=== PATIENT | male | born 1935 | race Caucasian/White ===

== ENCOUNTER → 2017-03-19 | Outpatient (CLI) | payer MEDICARE, OTHER ==
[~2017-03-19] MED LIST: /ADVA50050; /TAMS4CA; /TIOT18INH; ACET65TA; EYE; HYDR25TA6; LIDODERM PATCH; LIPI20TA; MILKSUS; PAXI10TA; PERC5TAB8; PROS5TAB; XANA0.25; XANA0.5T; [UNRECOGNIZED DRUG - OTHER]
--- NOTE | 2017-03-19 16:01 | REP ---
Left knee series: Five views. History: Pain. Findings: Five views of the left knee demonstrate vascular calcification fairly extensively. There is early medial compartment osteoarthritic spurring. There is nonarticular spurring at the superior pole of the patella at the quadriceps tendon insertion. Bones, joints and soft tissues are otherwise unremarkable. Impression: No traumatic abnormality. Nonarticular spurring at the upper pole the patella. Early medial compartment osteoarthritic spurring. Signed by Warner Cohn MD 03/19/2017 05:18 P
== END ==
LOC: M WUC 14:40
PROVIDERS: ATTEND Nurse Practitioner Family
DX: M25.562 Pain in left knee (principal); M25.762 Osteophyte, left knee

== ENCOUNTER 2018-01-24 18:49 | Inpatient (IN) | payer MEDICARE, OTHER ==
[2018-01-24] MEDS: ASPIRIN 81 MG CHEW TABLET PO (21:15)
[2018-01-24 22:13] LABS: BASO % 0.5 % (0.0-1.0); EOS # 0.2 10^3/uL (0.0-0.50); EOS % 2.5 % (0.0-3.0); HEMATOCRIT 37.8 % (42.0-52.0); HEMOGLOBIN 12.2 g/dl (13.5-17.5); IMMATURE GRANULOCYTE % 0.3 % (0-3.0); LYMPH # 1.2 10^3/uL (1.5-4.5); LYMPH % 18.7 % (24.0-44.0); MEAN CORPUSCULAR HEMOGLOBIN 28.2 pg (27.0-33.0); MEAN CORPUSCULAR HGB CONC 32.3 g/dl (32.0-36.5); MEAN CORPUSCULAR VOLUME 87.3 fl (80.0-96.0); MONO # 0.7 10^3/uL (0.0-0.8); NEUTROPHILS # 4.4 10^3/uL (1.8-7.7); PLATELET COUNT, AUTOMATED 194 10^3/uL (150-450); RED BLOOD COUNT 4.33 10^6/uL (4.30-6.10); WHITE BLOOD COUNT 6.5 10^3/uL (4.0-10.0)
[2018-01-24 22:22] LABS: BEDSIDE GLUCOSE 97 MG/DL (83-110)
[2018-01-24 22:24] LABS: PROTHROMBIN TIME 15.4 SECONDS (12.1-14.4)
[2018-01-24 22:25] LABS: PARTIAL THROMBOPLASTIN TIME 37.2 SECONDS (25.4-37.6)
[2018-01-24 22:31] LABS: ANION GAP 4 MEQ/L (8-16); BLOOD UREA NITROGEN 25 MG/DL (7-18); C REACTIVE PROTEIN QUANTITATIV 0.33 MG/DL (0.00-0.30); CALCIUM LEVEL 8.8 MG/DL (8.8-10.2); CARBON DIOXIDE LEVEL 33 MEQ/L (21-32); CHLORIDE LEVEL 108 MEQ/L (98-107); CK-MB VALUE MASS 1.7 NG/ML (<3.6); CPK CREATINE PHOSPHOKINASE 197 U/L (39-308); CREATININE FOR GFR 1.15 MG/DL (0.70-1.30); GLOMERULAR FILTRATION RATE > 60.0 (>35); GLUCOSE, FASTING 98 MG/DL (70-100); MB/CK RELATIVE INDEX 0.86 (< OR =4); POTASSIUM SERUM 3.9 MEQ/L (3.5-5.1); SODIUM LEVEL 145 MEQ/L (136-145); TROPONIN I < 0.02 NG/ML (< 0.10)
[2018-01-24 23:08] LABS: ERYTHROCYTE SEDIMENTATION RATE 16 mm/hr (0-20)
[2018-01-24] MEDS ORDERED: ONDANSETRON 4 MG TAB (S0181) PO (23:45)
[2018-01-24] MEDS ORDERED: ACETAMINOPHEN TAB 650MG DOSE (2X325MG) PO (23:45)
[2018-01-25] MEDS: ASPIRIN 81 MG CHEW TABLET PO (00:15)
[2018-01-25 07:03] LABS: HEMATOCRIT 36.6 % (42.0-52.0); HEMOGLOBIN 11.8 g/dl (13.5-17.5); MEAN CORPUSCULAR HEMOGLOBIN 28.3 pg (27.0-33.0); MEAN CORPUSCULAR HGB CONC 32.2 g/dl (32.0-36.5); MEAN CORPUSCULAR VOLUME 87.8 fl (80.0-96.0); PLATELET COUNT, AUTOMATED 173 10^3/uL (150-450); RED BLOOD COUNT 4.17 10^6/uL (4.30-6.10); WHITE BLOOD COUNT 4.8 10^3/uL (4.0-10.0)
[2018-01-25 07:28] LABS: ANION GAP 6 MEQ/L (8-16); BLOOD UREA NITROGEN 21 MG/DL (7-18); CALCIUM LEVEL 8.6 MG/DL (8.8-10.2); CARBON DIOXIDE LEVEL 31 MEQ/L (21-32); CHLORIDE LEVEL 108 MEQ/L (98-107); CHOLESTEROL LEVEL 146 MG/DL (<200); CHOLESTEROL RISK RATIO 2.862 (<5); CREATININE FOR GFR 1.02 MG/DL (0.70-1.30); GLOMERULAR FILTRATION RATE > 60.0 (>35); GLUCOSE, FASTING 88 MG/DL (70-100); HDL CHOLESTEROL 51 MG/DL (>40); LDL CHOLESTEROL 78.4 MG/DL (<100); NON-HDL-C 95 MG/DL; POTASSIUM SERUM 3.3 MEQ/L (3.5-5.1); SODIUM LEVEL 145 MEQ/L (136-145); TRIGLYCERIDES LEVEL 83 MG/DL (<150)
[2018-01-25] MEDS ORDERED: ALBUTEROL 90 MCG/ACT 8GM HFA INHALER INH (08:30)
[2018-01-25] MEDS ORDERED: PILL CRUSHER/CUTTER 1 EACH XX (08:30)
[2018-01-25] MEDS: POTASSIUM CHLORIDE 10 MEQ SR TABLET PO (08:45)
[2018-01-25] MEDS: APIXABAN 5 MG TAB (ELIQUIS) PO ×2 (08:46→20:42)
[2018-01-25] MEDS: TAMSULOSIN 0.4 MG CAP PO (08:47)
[2018-01-25] MEDS: ATORVASTATIN 20 MG TAB PO (08:48)
[2018-01-25] MEDS: ISOSORBIDE MON. (IMDUR) 30 MG XR TAB PO (08:48)
[2018-01-25] MEDS: METOPROLOL TART 25 MG TABLET PO ×2 (08:49→20:43)
[2018-01-25] MEDS: FINASTERIDE 5 MG TAB PO (08:53)
[2018-01-25] MEDS: FAMOTIDINE 20 MG TAB PO (08:53)
[2018-01-25] MEDS: amLODIPine 5 MG TAB PO (09:44)
[2018-01-25] MEDS ORDERED: ISOVUE-370 76% 100ML VIAL (Q9967) As Ordered (17:12)
[2018-01-26 06:53] LABS: HEMATOCRIT 39.9 % (42.0-52.0); HEMOGLOBIN 12.9 g/dl (13.5-17.5); MEAN CORPUSCULAR HEMOGLOBIN 28.2 pg (27.0-33.0); MEAN CORPUSCULAR HGB CONC 32.3 g/dl (32.0-36.5); MEAN CORPUSCULAR VOLUME 87.1 fl (80.0-96.0); PLATELET COUNT, AUTOMATED 200 10^3/uL (150-450); RED BLOOD COUNT 4.58 10^6/uL (4.30-6.10); RED CELL DISTRIBUTION WIDTH 13.2 % (11.5-14.5); WHITE BLOOD COUNT 7.6 10^3/uL (4.0-10.0)
[2018-01-26 07:01] LABS: ANION GAP 4 MEQ/L (8-16); BLOOD UREA NITROGEN 20 MG/DL (7-18); CALCIUM LEVEL 8.8 MG/DL (8.8-10.2); CARBON DIOXIDE LEVEL 31 MEQ/L (21-32); CHLORIDE LEVEL 108 MEQ/L (98-107); CREATININE FOR GFR 1.05 MG/DL (0.70-1.30); GLOMERULAR FILTRATION RATE > 60.0 (>35); GLUCOSE, FASTING 93 MG/DL (70-100); POTASSIUM SERUM 3.7 MEQ/L (3.5-5.1); SODIUM LEVEL 143 MEQ/L (136-145)
[2018-01-26] MEDS: ISOSORBIDE MON. (IMDUR) 30 MG XR TAB PO (09:35)
[2018-01-26] MEDS: TAMSULOSIN 0.4 MG CAP PO (09:35)
[2018-01-26] MEDS: FINASTERIDE 5 MG TAB PO (09:35)
[2018-01-26] MEDS: APIXABAN 5 MG TAB (ELIQUIS) PO (09:35)
[2018-01-26] MEDS: FAMOTIDINE 20 MG TAB PO (09:35)
[2018-01-26] MEDS: METOPROLOL TART 25 MG TABLET PO (09:36)
[2018-01-26] MEDS: amLODIPine 5 MG TAB PO (09:36)
[2018-01-26] MEDS ORDERED: ATORVASTATIN 20 MG TAB PO (21:00)
== END 2018-01-26 14:15 | disposition home or self-care (01) | DRG 123 ==
LOC: M ED 18:49 → M ED INP 23:36
DX: H34.232 Retinal artery branch occlusion, left eye (principal); E78.5 Hyperlipidemia, unspecified; J44.9 Chronic obstructive pulmonary disease, unspecified; K21.9 Gastro-esophageal reflux disease without esophagitis; N40.0 Benign prostatic hyperplasia without lower urinary tract symptoms; I10 Essential (primary) hypertension; Z87.442 Personal history of urinary calculi; Z90.49 Acquired absence of other specified parts of digestive tract; Z98.49 Cataract extraction status, unspecified eye; Z88.0 Allergy status to penicillin; Z88.2 Allergy status to sulfonamides; Z79.01 Long term (current) use of anticoagulants; Z79.899 Other long term (current) drug therapy; Z87.891 Personal history of nicotine dependence; Z85.828 Personal history of other malignant neoplasm of skin; I48.0 Paroxysmal atrial fibrillation; I65.22 Occlusion and stenosis of left carotid artery

== ENCOUNTER 2018-04-19 18:19 | Emergency (ER) | payer MEDICARE, OTHER ==
[2018-04-19 21:13] LABS: BASO % 0.4 % (0.0-1.0); EOS # 0.3 10^3/uL (0.0-0.50); EOS % 3.7 % (0.0-3.0); HEMATOCRIT 40.7 % (42.0-52.0); HEMOGLOBIN 13.3 g/dl (13.5-17.5); IMMATURE GRANULOCYTE % 0.4 % (0-3.0); LYMPH # 1.5 10^3/uL (1.5-4.5); LYMPH % 20.1 % (24.0-44.0); MEAN CORPUSCULAR HEMOGLOBIN 28.7 pg (27.0-33.0); MEAN CORPUSCULAR HGB CONC 32.7 g/dl (32.0-36.5); MEAN CORPUSCULAR VOLUME 87.7 fl (80.0-96.0); MONO # 0.7 10^3/uL (0.0-0.8); MONO % 8.7 % (0.0-5.0); NEUTROPHILS # 5.1 10^3/uL (1.8-7.7); NEUTROPHILS % 66.7 % (36.0-66.0); PLATELET COUNT, AUTOMATED 203 10^3/uL (150-450); RED BLOOD COUNT 4.64 10^6/uL (4.30-6.10); RED CELL DISTRIBUTION WIDTH 13.1 % (11.5-14.5); WHITE BLOOD COUNT 7.6 10^3/uL (4.0-10.0)
[2018-04-19 21:43] LABS: ALBUMIN 3.3 GM/DL (3.2-5.2); ALBUMIN/GLOBULIN RATIO 0.97 (1.00-1.93); ALKALINE PHOSPHATASE 71 U/L (45-117); ALT/SGPT 30 U/L (12-78); ANION GAP 9 MEQ/L (8-16); AST/SGOT 21 U/L (7-37); BILIRUBIN,DIRECT 0.2 MG/DL (0.0-0.2); BILIRUBIN,TOTAL 0.8 MG/DL (0.2-1.0); BLOOD UREA NITROGEN 25 MG/DL (7-18); CALCIUM LEVEL 8.4 MG/DL (8.8-10.2); CARBON DIOXIDE LEVEL 28 MEQ/L (21-32); CHLORIDE LEVEL 106 MEQ/L (98-107); CPK CREATINE PHOSPHOKINASE 121 U/L (39-308); CREATININE FOR GFR 1.21 MG/DL (0.70-1.30); GLOMERULAR FILTRATION RATE > 60.0 (>35); GLUCOSE, FASTING 93 MG/DL (70-100); MAGNESIUM LEVEL 1.9 MG/DL (1.8-2.4); NT-PRO BNP 2131 PG/ML (<450); POTASSIUM SERUM 3.6 MEQ/L (3.5-5.1); SODIUM LEVEL 143 MEQ/L (136-145); TOTAL PROTEIN 6.7 GM/DL (6.4-8.2); TROPONIN I < 0.02 NG/ML (< 0.10)
[2018-04-19] MEDS: METOPROLOL SUCC (TopROL XL) 50MG **XL** TAB PO (22:46)
== END 2018-04-19 23:33 | disposition home or self-care (01) ==
LOC: M ED 18:19
DX: I48.91 Unspecified atrial fibrillation (principal); J44.9 Chronic obstructive pulmonary disease, unspecified; Z87.442 Personal history of urinary calculi; F41.9 Anxiety disorder, unspecified; H34.239 Retinal artery branch occlusion, unspecified eye; Z87.891 Personal history of nicotine dependence; Z88.8 Allergy status to other drugs, medicaments and biological substances; Z88.0 Allergy status to penicillin; Z88.2 Allergy status to sulfonamides
CPT/HCPCS: 71046

== ENCOUNTER 2018-04-21 11:51 | Observation (INO) | payer MEDICARE, OTHER ==
[2018-04-21 13:11] LABS: BASO # 0.1 10^3/uL (0.0-0.2); BASO % 0.7 % (0.0-1.0); EOS # 0.1 10^3/uL (0.0-0.50); EOS % 1.9 % (0.0-3.0); HEMATOCRIT 41.4 % (42.0-52.0); HEMOGLOBIN 13.3 g/dl (13.5-17.5); IMMATURE GRANULOCYTE % 0.4 % (0-3.0); LYMPH # 1.2 10^3/uL (1.5-4.5); LYMPH % 17.9 % (24.0-44.0); MEAN CORPUSCULAR HEMOGLOBIN 28.5 pg (27.0-33.0); MEAN CORPUSCULAR HGB CONC 32.1 g/dl (32.0-36.5); MEAN CORPUSCULAR VOLUME 88.7 fl (80.0-96.0); MONO # 0.5 10^3/uL (0.0-0.8); MONO % 7.7 % (0.0-5.0); NEUTROPHILS # 4.8 10^3/uL (1.8-7.7); NEUTROPHILS % 71.4 % (36.0-66.0); PLATELET COUNT, AUTOMATED 230 10^3/uL (150-450); RED BLOOD COUNT 4.67 10^6/uL (4.30-6.10); RED CELL DISTRIBUTION WIDTH 13.2 % (11.5-14.5); WHITE BLOOD COUNT 6.8 10^3/uL (4.0-10.0)
[2018-04-21 13:14] LABS: PROTHROMBIN TIME 17.4 SECONDS (12.1-14.4)
[2018-04-21 13:15] LABS: PARTIAL THROMBOPLASTIN TIME 37.2 SECONDS (25.4-37.6)
[2018-04-21 13:20] LABS: ALBUMIN 3.6 GM/DL (3.2-5.2); ALBUMIN/GLOBULIN RATIO 1.13 (1.00-1.93); ALKALINE PHOSPHATASE 67 U/L (45-117); ALT/SGPT 29 U/L (12-78); ANION GAP 5 MEQ/L (8-16); AST/SGOT 18 U/L (7-37); BILIRUBIN,DIRECT 0.3 MG/DL (0.0-0.2); BILIRUBIN,TOTAL 1.1 MG/DL (0.2-1.0); BLOOD UREA NITROGEN 31 MG/DL (7-18); CALCIUM LEVEL 9.1 MG/DL (8.8-10.2); CARBON DIOXIDE LEVEL 32 MEQ/L (21-32); CHLORIDE LEVEL 108 MEQ/L (98-107); CREATININE FOR GFR 1.52 MG/DL (0.70-1.30); GLOMERULAR FILTRATION RATE 46.7 (>35); GLUCOSE, FASTING 126 MG/DL (70-100); POTASSIUM SERUM 3.8 MEQ/L (3.5-5.1); SODIUM LEVEL 145 MEQ/L (136-145); TOTAL PROTEIN 6.8 GM/DL (6.4-8.2)
[2018-04-21 13:21] LABS: C REACTIVE PROTEIN QUANTITATIV < 0.30 MG/DL (0.00-0.30); CPK CREATINE PHOSPHOKINASE 86 U/L (39-308); MB/CK RELATIVE INDEX 1.63 (< OR =4); NT-PRO BNP 2064 PG/ML (<450); TROPONIN I < 0.02 NG/ML (< 0.10)
[2018-04-21 17:05] LABS: CPK CREATINE PHOSPHOKINASE 80 U/L (39-308); MB/CK RELATIVE INDEX 1.62 (< OR =4); TROPONIN I < 0.02 NG/ML (< 0.10)
[2018-04-21] MEDS ORDERED: ALBUTEROL 90 MCG/ACT 8GM HFA INHALER INH ×2 (19:00)
[2018-04-21] MEDS ORDERED: ACETAMINOPHEN TAB 650MG DOSE (2X325MG) PO ×2 (19:00)
[2018-04-21 20:16] LABS: TROPONIN I < 0.02 NG/ML (< 0.10)
[2018-04-21] MEDS: APIXABAN 2.5 MG TAB (ELIQUIS) PO ×2 (20:37)
[2018-04-21] MEDS: ATORVASTATIN 20 MG TAB PO ×2 (20:37)
[2018-04-21] MEDS: FAMOTIDINE 20 MG TAB PO ×2 (20:37)
[2018-04-21] MEDS: METOPROLOL TARTRATE 100 MG TAB PO ×2 (20:37)
[2018-04-21] MEDS: NS 1,000 ML IV ×2 (20:38)
[2018-04-21] MEDS: TAMSULOSIN 0.4 MG CAP PO ×2 (20:38)
[2018-04-21] MEDS ORDERED: APIXABAN 5 MG TAB (ELIQUIS) PO ×2 (21:00)
[2018-04-21] MEDS: amLODIPine 5 MG TAB PO ×2 (21:00)
[2018-04-22 03:06] LABS: TROPONIN I < 0.02 NG/ML (< 0.10)
[2018-04-22 06:37] LABS: HEMATOCRIT 37.6 % (42.0-52.0); HEMOGLOBIN 12.1 g/dl (13.5-17.5); MEAN CORPUSCULAR HEMOGLOBIN 28.5 pg (27.0-33.0); MEAN CORPUSCULAR HGB CONC 32.2 g/dl (32.0-36.5); MEAN CORPUSCULAR VOLUME 88.7 fl (80.0-96.0); PLATELET COUNT, AUTOMATED 179 10^3/uL (150-450); RED BLOOD COUNT 4.24 10^6/uL (4.30-6.10); RED CELL DISTRIBUTION WIDTH 13.2 % (11.5-14.5); WHITE BLOOD COUNT 5.5 10^3/uL (4.0-10.0)
[2018-04-22 06:59] LABS: ANION GAP 4 MEQ/L (8-16); BLOOD UREA NITROGEN 29 MG/DL (7-18); CALCIUM LEVEL 8.5 MG/DL (8.8-10.2); CARBON DIOXIDE LEVEL 30 MEQ/L (21-32); CHLORIDE LEVEL 109 MEQ/L (98-107); CREATININE FOR GFR 1.19 MG/DL (0.70-1.30); GLOMERULAR FILTRATION RATE > 60.0 (>35); GLUCOSE, FASTING 89 MG/DL (70-100); POTASSIUM SERUM 3.7 MEQ/L (3.5-5.1); SODIUM LEVEL 143 MEQ/L (136-145)
[2018-04-22] MEDS: NS 1,000 ML IV ×2 (07:45)
[2018-04-22] MEDS ORDERED: PREVNAR 13 VACCINE SYRINGE (CPT CODE:90670) IM ×4 (09:00→14:00)
[2018-04-22] MEDS: METOPROLOL TARTRATE 100 MG TAB PO ×2 (09:35)
[2018-04-22] MEDS: ISOSORBIDE MON. (IMDUR) 30 MG XR TAB PO ×2 (09:38)
[2018-04-22] MEDS: APIXABAN 2.5 MG TAB (ELIQUIS) PO ×2 (09:38)
[2018-04-22 15:27] LABS: TROPONIN I < 0.02 NG/ML (< 0.10)
== END 2018-04-22 15:00 | disposition home or self-care (01) ==
LOC: M MSPAV 04-22 00:04 → M ED 11:51 → M ED INP 19:14
DX: I48.0 Paroxysmal atrial fibrillation (principal); R06.09 Other forms of dyspnea; R79.89 Other specified abnormal findings of blood chemistry; J44.9 Chronic obstructive pulmonary disease, unspecified; K21.9 Gastro-esophageal reflux disease without esophagitis; I10 Essential (primary) hypertension; F41.9 Anxiety disorder, unspecified; Z79.899 Other long term (current) drug therapy; Z79.01 Long term (current) use of anticoagulants; Z79.51 Long term (current) use of inhaled steroids
CPT/HCPCS: 71045

== ENCOUNTER → 2020-03-14 | Outpatient (CLI) | payer MEDICARE, OTHER ==
[~2020-03-14] MED LIST changes: -/ADVA50050; -/TAMS4CA; -/TIOT18INH; +ADVA1AER2; +AMLO1TAB24 PO; +ATOR1TAB21 PO; +ATOR40TA75 PO; +ELIQ5TAB PO; +FINA5TAB2 PO; +FLOM0.4C39 PO; -HYDR25TA6; +HYDR25TA6 PO; +HYDR25TAB PO; +ISOS30TA4 PO; -LIPI20TA; +LIPI20TA PO; +LOPR1TAB7 PO; +METO50TA7 PO; +RANI1SYP PO; +RANI75TA15 PO; +SPIR1CAP; +TREL1AER INH; +VENTAER INH
--- NOTE | 2020-03-31 14:23 | REP ---
LEFT HAND SERIES: 4-VIEWS HISTORY: Unspecified contusion. Patient injured in a fall. FINDINGS: Four views of the left hand demonstrate overall normal mineralization. 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 Osteoarthritic changes are seen in the distal interphalangeal (DIP) joints of all four fingers. There is no visible fracture or subluxation. There is soft tissue swelling dorsally over the distal metacarpals on the lateral film. IMPRESSION: Soft tissue swelling and osteoarthritic changes. No acute bony abnormality. MTDD
== END ==
LOC: M WUC 13:09
PROVIDERS: ATTEND Physician Assistant
DX: S61.402A Unspecified open wound of left hand, initial encounter (principal); S60.222A Contusion of left hand, initial encounter; X58.XXXA Exposure to other specified factors, initial encounter; Y92.9 Unspecified place or not applicable; M18.12 Unilateral primary osteoarthritis of first carpometacarpal joint, left hand

== ENCOUNTER → 2021-11-22 | Outpatient (CLI) | payer MEDICARE, OTHER ==
[~2021-11-22] MED LIST changes: +HYDR-3490 PO; -HYDR25TAB PO; +ISOS1TAB35 PO; -ISOS30TA4 PO; +ISOVUE-370 76% 100ML VIAL As Ordered ONE
== END ==
LOC: M RAD 13:50
PROVIDERS: ATTEND Surgery Vascular Surgery
DX: I70.213 Atherosclerosis of native arteries of extremities with intermittent claudication, bilateral legs (principal); I70.0 Atherosclerosis of aorta; N28.1 Cyst of kidney, acquired; K57.30 Diverticulosis of large intestine without perforation or abscess without bleeding; N20.0 Calculus of kidney
CPT/HCPCS: 75635; Q9967

== ENCOUNTER → 2022-01-30 | Outpatient (CLI) | payer MEDICARE, OTHER ==
[~2022-01-30] MED LIST changes: -ISOVUE-370 76% 100ML VIAL As Ordered ONE
== END ==
LOC: M WUC 14:46
PROVIDERS: ATTEND Internal Medicine
DX: R14.0 Abdominal distension (gaseous) (principal); N20.0 Calculus of kidney

== ENCOUNTER → 2022-03-28 | Outpatient (CLI) | payer MEDICARE, OTHER ==
[~2022-03-28] MED LIST changes: +PROHANCE 279.3MG/ML 15ML VIAL ONE
== END ==
LOC: M PLAIMG 12:19
PROVIDERS: ATTEND Physician Assistant Medical
DX: R93.0 Abnormal findings on diagnostic imaging of skull and head, not elsewhere classified (principal); I67.82 Cerebral ischemia; R42 Dizziness and giddiness; H53.9 Unspecified visual disturbance
CPT/HCPCS: 70544; 70553; A9576

== ENCOUNTER → 2022-04-05 | Outpatient (CLI) | payer MEDICARE, OTHER ==
[~2022-04-05] MED LIST changes: -PROHANCE 279.3MG/ML 15ML VIAL ONE
== END ==
LOC: M WUC 10:50
PROVIDERS: ATTEND Physician Assistant Medical
DX: J06.9 Acute upper respiratory infection, unspecified (principal)

== ENCOUNTER → 2022-05-08 | Outpatient (CLI) | payer MEDICARE, OTHER | LOC: M RAD 13:40 | PROVIDERS: ATTEND Physician Assistant | DX: I65.23 Occlusion and stenosis of bilateral carotid arteries (principal) ==

== ENCOUNTER → 2022-06-28 | Outpatient (CLI) | payer MEDICARE, OTHER ==
[~2022-06-28] MED LIST changes: +HYDR-3490; +PRED50TA PO
== END ==
LOC: M ONCR 09:26
PROVIDERS: ATTEND General Practice
DX: C41.0 Malignant neoplasm of bones of skull and face (principal); E78.5 Hyperlipidemia, unspecified; H92.09 Otalgia, unspecified ear; I12.9 Hypertensive chronic kidney disease with stage 1 through stage 4 chronic kidney disease, or unspecified chronic kidney disease; I48.91 Unspecified atrial fibrillation; J32.9 Chronic sinusitis, unspecified; J44.9 Chronic obstructive pulmonary disease, unspecified; R68.84 Jaw pain; R51.9 Headache, unspecified; R53.83 Other fatigue; Z90.49 Acquired absence of other specified parts of digestive tract; Z88.0 Allergy status to penicillin; Z88.5 Allergy status to narcotic agent; Z88.2 Allergy status to sulfonamides; Z88.1 Allergy status to other antibiotic agents; Z79.899 Other long term (current) drug therapy; Z79.52 Long term (current) use of systemic steroids; Z79.51 Long term (current) use of inhaled steroids

== ENCOUNTER → 2022-07-09 | Outpatient (CLI) | payer MEDICARE, OTHER ==
[~2022-07-09] MED LIST changes: +ISOVUE-370 76% 100ML VIAL As Ordered ONE
[2022-07-09 17:57] LABS: ALKALINE PHOSPHATASE 81 U/L (46-116); ALT/SGPT 24 U/L (7.0-40); AST/SGOT 22 U/L (<34); BILIRUBIN,TOTAL 0.8 MG/DL (0.3-1.2); BLOOD UREA NITROGEN 23 MG/DL (9-23); CALCIUM LEVEL 8.8 MG/DL (8.3-10.6); CARBON DIOXIDE LEVEL 32 MMOL/L (20-31); CHLORIDE LEVEL 106 MMOL/L (98-107); CREATININE FOR GFR 1.05 MG/DL (0.70-1.30); GLOMERULAR FILTRATION RATE > 60.0 (>35); GLUCOSE, FASTING 87 MG/DL (74-106); POTASSIUM SERUM 3.8 MMOL/L (3.5-5.1); SODIUM LEVEL 144 MMOL/L (136-145); TOTAL PROTEIN 6.2 G/DL (5.7-8.2)
[2022-07-09 18:00] LABS: BASO % 0.3 % (0.0-1.0); EOS # 0.2 10^3/uL (0.0-0.5); EOS % 2.2 % (0.0-3.0); HEMOGLOBIN 11.6 g/dl (13.5-17.5); LYMPH # 1.1 10^3/uL (1.5-5.0); LYMPH % 16.5 % (24.0-44.0); MEAN CORPUSCULAR HEMOGLOBIN 28.2 pg (27.0-33.0); MEAN CORPUSCULAR HGB CONC 31.4 g/dl (32.0-36.5); MONO # 0.9 10^3/uL (0.0-0.8); NEUTROPHILS # 4.7 10^3/uL (1.5-8.5); NEUTROPHILS % 67.4 % (36.0-66.0); PLATELET COUNT, AUTOMATED 185 10^3/uL (150-450); RED BLOOD COUNT 4.11 10^6/uL (4.30-6.10); WHITE BLOOD COUNT 6.9 10^3/uL (4.0-10.0)
== END ==
LOC: M RAD 16:42
PROVIDERS: ATTEND General Practice
DX: C41.0 Malignant neoplasm of bones of skull and face (principal); R91.8 Other nonspecific abnormal finding of lung field; I25.10 Atherosclerotic heart disease of native coronary artery without angina pectoris; Z90.49 Acquired absence of other specified parts of digestive tract; N28.1 Cyst of kidney, acquired; E27.9 Disorder of adrenal gland, unspecified; Z87.81 Personal history of (healed) traumatic fracture; M47.9 Spondylosis, unspecified; H74.8X2 Other specified disorders of left middle ear and mastoid
CPT/HCPCS: 36415; 70487; 70491; 71260; 80053; 85025; Q9967

== ENCOUNTER → 2022-07-31 | Outpatient (RCR) | payer MEDICARE, OTHER ==
[~2022-07-31] MED LIST changes: +DEXA2TA PO; +DEXA4TA PO; +FLUTISP; -HYDR-3490; -ISOVUE-370 76% 100ML VIAL As Ordered ONE; +LIDO15SO4 PO; +OXYC1SOL3 PO; +POTA10CA33; +magic mouthwash SSP
== END ==
LOC: M ONCR 07-11 10:08
PROVIDERS: ATTEND General Practice
DX: C11.2 Malignant neoplasm of lateral wall of nasopharynx (principal)

== ENCOUNTER → 2022-08-12 | Outpatient (CLI) | payer MEDICARE, OTHER | LOC: M LABSMTC 09:55 | PROVIDERS: ATTEND Anesthesiology | DX: Z01.812 Encounter for preprocedural laboratory examination (principal); Z11.52 Encounter for screening for COVID-19 ==

== ENCOUNTER → 2022-08-13 | Outpatient (CLI) | payer MEDICARE, OTHER ==
[~2022-08-13] MED LIST changes: +TRAM50TA2 PO
== END ==
LOC: M ONCR 15:07
PROVIDERS: ATTEND General Practice
DX: R07.0 Pain in throat (principal); Z92.3 Personal history of irradiation

== ENCOUNTER → 2022-08-17 | Outpatient (CLI) | payer MEDICARE, OTHER | LOC: M ONCR 15:55 | PROVIDERS: ATTEND General Practice | DX: K12.30 Oral mucositis (ulcerative), unspecified (principal) ==

== ENCOUNTER → 2022-08-24 | Outpatient (CLI) | payer MEDICARE, OTHER | LOC: M ONCR 10:46 | PROVIDERS: ATTEND General Practice | DX: Z01.89 Encounter for other specified special examinations (principal) ==

== ENCOUNTER → 2022-11-07 | Outpatient (CLI) | payer MEDICARE, OTHER ==
[~2022-11-07] MED LIST changes: +FLUT50SP17; -FLUTISP; +LIDO15SO PO; -LIDO15SO4 PO
[2022-11-07 18:52] LABS: ALBUMIN 3.3 G/DL (3.2-5.2); ALKALINE PHOSPHATASE 77 U/L (46-116); ALT/SGPT 25 U/L (7.0-40); AST/SGOT 22 U/L (<34); BILIRUBIN,TOTAL 0.8 MG/DL (0.3-1.2); BLOOD UREA NITROGEN 25 MG/DL (9-23); CALCIUM LEVEL 9.1 MG/DL (8.3-10.6); CARBON DIOXIDE LEVEL 32 MMOL/L (20-31); CHLORIDE LEVEL 108 MMOL/L (98-107); CREATININE FOR GFR 1.09 MG/DL (0.70-1.30); GLOMERULAR FILTRATION RATE > 60.0 (>35); GLUCOSE, FASTING 58 MG/DL (74-106); POTASSIUM SERUM 3.6 MMOL/L (3.5-5.1); SODIUM LEVEL 141 MMOL/L (136-145); TOTAL PROTEIN 6.5 G/DL (5.7-8.2)
== END ==
LOC: M LAB 17:12
PROVIDERS: ATTEND General Practice
DX: C41.0 Malignant neoplasm of bones of skull and face (principal)

== ENCOUNTER → 2022-11-12 | Outpatient (CLI) | payer MEDICARE, OTHER ==
[~2022-11-12] MED LIST changes: +ACET-907 PO; +FAMO1TAB11 PO; +ISOVUE-370 76% 100ML VIAL As Ordered ONE; +METO1TAB33 PO; -POTA10CA33; +POTA10CA33 PO
== END ==
LOC: M RAD 09:49
PROVIDERS: ATTEND General Practice
DX: C41.0 Malignant neoplasm of bones of skull and face (principal); M27.2 Inflammatory conditions of jaws; M62.89 Other specified disorders of muscle
CPT/HCPCS: 70487; 70491; Q9967

== ENCOUNTER 2022-11-16 08:19 | Inpatient (IN) | payer MEDICARE, OTHER ==
[~2022-11-16] VITALS: Ht 170.2 cm; Wt 80.1 kg
[2022-11-16] MEDS: TIOTROPIUM INHALER/CAPSULE (SPIRIVA) INH SCH (08:00)
[2022-11-16] MEDS: ADVAIR HFA 115/21MCG INHALER INH SCH ×2 (08:00→20:23)
[~2022-11-16 08:19] MED LIST changes: -ACET-907 PO; -FAMO1TAB11 PO; -ISOVUE-370 76% 100ML VIAL As Ordered ONE; -METO1TAB33 PO
[2022-11-16 09:33] LABS: BASO % 0.1 % (0.0-1.0); HEMATOCRIT 37.6 % (42.0-52.0); HEMOGLOBIN 12.5 g/dl (13.5-17.5); LYMPH # 0.7 10^3/uL (1.5-5.0); LYMPH % 4.4 % (24.0-44.0); MEAN CORPUSCULAR HEMOGLOBIN 28.9 pg (27.0-33.0); MEAN CORPUSCULAR HGB CONC 33.2 g/dl (32.0-36.5); MONO # 0.9 10^3/uL (0.0-0.8); MONO % 5.8 % (2.0-8.0); NEUTROPHILS # 13.8 10^3/uL (1.5-8.5); NEUTROPHILS % 88.9 % (36.0-66.0); PLATELET COUNT, AUTOMATED 207 10^3/uL (150-450); RED BLOOD COUNT 4.32 10^6/uL (4.30-6.10); WHITE BLOOD COUNT 15.6 10^3/uL (4.0-10.0)
[2022-11-16] MEDS ORDERED: ISOVUE-370 76% 100ML VIAL As Ordered ONE (09:39)
[2022-11-16 09:54] LABS: INR 1.17; PROTHROMBIN TIME 15.1 SECONDS (12.5-14.5)
[2022-11-16 09:55] LABS: PARTIAL THROMBOPLASTIN TIME 35.3 SECONDS (24.8-34.2)
[2022-11-16 09:57] LABS: ALBUMIN 3.4 G/DL (3.2-5.2); BILIRUBIN,DIRECT 0.7 MG/DL (<0.4); BILIRUBIN,TOTAL 2.2 MG/DL (0.3-1.2); TOTAL PROTEIN 6.7 G/DL (5.7-8.2)
[2022-11-16] MEDS ORDERED: MOXIFLOXACIN HCL 400 MG in IV 1 EA IV ONE (10:15)
[2022-11-16 10:28] LABS: RSV AMPLIFICATION NEGATIVE (NEGATIVE)
[2022-11-16] MEDS ORDERED: FAMO1TAB11 PO (11:46)
[2022-11-16] MEDS ORDERED: METO1TAB33 PO (11:46)
[2022-11-16] MEDS ORDERED: ACET-907 PO (11:46)
[2022-11-16] MEDS ORDERED: HOME MED LIST COMPLETE! XX SCH (11:50)
[2022-11-16] MEDS ORDERED: NS 1,340 ML in IV 1 EA IV ONE (11:55)
[2022-11-16] MEDS ORDERED: MORPHINE 2 MG/ML 1ML VIAL IV PRN (12:25)
[2022-11-16] MEDS ORDERED: ONDANSETRON 4MG 2ML VIAL IV PRN (12:25)
[2022-11-16 13:26] VITALS: BP 140/75
[2022-11-16] MEDS: metroNIDAZOLE 500 MG in IV 1 EA IV SCH ×2 (13:49→20:58)
[2022-11-16] MEDS: NS 1,000 ML IV SCH (13:50)
[2022-11-16] MEDS: PANTOPRAZOLE 40MG VIAL IV SCH (13:52)
[2022-11-16 14:27] LABS: ALBUMIN 3.2 G/DL (3.2-5.2); ALKALINE PHOSPHATASE 73 U/L (46-116); ALT/SGPT 24 U/L (7.0-40); AST/SGOT 21 U/L (<34); BILIRUBIN,TOTAL 2.2 MG/DL (0.3-1.2); BLOOD UREA NITROGEN 21 MG/DL (9-23); CALCIUM LEVEL 8.7 MG/DL (8.3-10.6); CARBON DIOXIDE LEVEL 27 MMOL/L (20-31); CHLORIDE LEVEL 103 MMOL/L (98-107); CREATININE FOR GFR 0.89 MG/DL (0.70-1.30); GLOMERULAR FILTRATION RATE > 60.0 (>35); GLUCOSE, FASTING 91 MG/DL (74-106); POTASSIUM SERUM 3.7 MMOL/L (3.5-5.1); SODIUM LEVEL 137 MMOL/L (136-145); TOTAL PROTEIN 6.2 G/DL (5.7-8.2)
[2022-11-16 17:59] VITALS: BP 90/62
[2022-11-16] MEDS ORDERED: ALBUTEROL 90 MCG/ACT 8GM HFA INHALER INH PRN (18:15)
[2022-11-16] MEDS ORDERED: NS 500 ML IV ONE (18:40)
[2022-11-16 18:48] VITALS: BP 146/62
[2022-11-16] MEDS: KETOROLAC 30 MG/ML 1ML VIAL IV PRN ×2 (19:34→21:01)
[2022-11-16] MEDS: ATORVASTATIN 20 MG TAB PO SCH (20:56)
[2022-11-16] MEDS: TAMSULOSIN 0.4 MG CAP PO SCH (20:56)
[2022-11-16] MEDS: amLODIPine 5 MG TAB PO SCH (20:58)
[2022-11-16 21:00] VITALS: BP 131/50
[2022-11-17] VITALS (8 sets, daily range): BP systolic 108–140; BP diastolic 49–76
[2022-11-17] MEDS: KETOROLAC 30 MG/ML 1ML VIAL IV PRN ×2 (03:07→18:02)
[2022-11-17] MEDS: metroNIDAZOLE 500 MG in IV 1 EA IV SCH ×3 (04:37→20:44)
[2022-11-17 05:56] LABS: HEMATOCRIT 32.9 % (42.0-52.0); HEMOGLOBIN 10.7 g/dl (13.5-17.5); MEAN CORPUSCULAR HEMOGLOBIN 28.7 pg (27.0-33.0); MEAN CORPUSCULAR HGB CONC 32.5 g/dl (32.0-36.5); MEAN CORPUSCULAR VOLUME 88.2 fl (80.0-96.0); PLATELET COUNT, AUTOMATED 160 10^3/uL (150-450); RED BLOOD COUNT 3.73 10^6/uL (4.30-6.10); WHITE BLOOD COUNT 13.9 10^3/uL (4.0-10.0)
[2022-11-17] MEDS ORDERED: ACETAMINOPHEN 1000MG 100ML IV BAG IV ONE (06:00)
[2022-11-17 06:14] LABS: ALBUMIN 2.5 G/DL (3.2-5.2); ALKALINE PHOSPHATASE 65 U/L (46-116); ALT/SGPT 19 U/L (7.0-40); AST/SGOT 20 U/L (<34); BILIRUBIN,TOTAL 2.1 MG/DL (0.3-1.2); BLOOD UREA NITROGEN 18 MG/DL (9-23); CALCIUM LEVEL 8.1 MG/DL (8.3-10.6); CARBON DIOXIDE LEVEL 25 MMOL/L (20-31); CHLORIDE LEVEL 108 MMOL/L (98-107); CREATININE FOR GFR 1.06 MG/DL (0.70-1.30); GLOMERULAR FILTRATION RATE > 60.0 (>35); GLUCOSE, FASTING 85 MG/DL (74-106); POTASSIUM SERUM 3.3 MMOL/L (3.5-5.1); SODIUM LEVEL 141 MMOL/L (136-145); TOTAL PROTEIN 5.1 G/DL (5.7-8.2)
[2022-11-17] MEDS: NS 1,000 ML IV SCH (06:15)
[2022-11-17] MEDS: TIOTROPIUM INHALER/CAPSULE (SPIRIVA) INH SCH (07:57)
[2022-11-17] MEDS: ADVAIR HFA 115/21MCG INHALER INH SCH ×2 (08:00→19:50)
[2022-11-17] MEDS: KCL 10MEQ/100ML SWI (KRUN) 10 MEQ in IV 1 EA IV SCH ×8 (09:00→19:05)
[2022-11-17] MEDS: PANTOPRAZOLE 40MG VIAL IV SCH (09:30)
[2022-11-17] MEDS: ISOSORBIDE MON. (IMDUR) 30MG XR TAB PO SCH (09:34)
[2022-11-17] MEDS: METOPROLOL SUCC (TopROL XL) 100MG *XL* TAB PO SCH (09:35)
[2022-11-17] MEDS ORDERED: LR 1,000 ML IV SCH ×2 (10:35→15:00)
[2022-11-17] MEDS ORDERED: HYDROMORPHONE HCL 0.5 MG/ 0.5 ML SYRINGE IV PRN ×2 (10:35→15:00)
[2022-11-17] MEDS ORDERED: BUPIVACAINE HCL 0.25% 10ML VIAL As Ordered ONE (11:00)
[2022-11-17] MEDS ORDERED: LIDOCAINE 1% SDV 30ML VIAL As Ordered ONE (11:01)
[2022-11-17] MEDS ORDERED: BUPIVACAINE LIPOSOME/PF 1.3% 20ML VIAL (13.3MG/ML)(EXPAREL) As Ordered ONE (11:01)
[2022-11-17] MEDS ORDERED: BUPIVACAINE HCL 0.25% 30ML VIAL As Ordered ONE (11:01)
[2022-11-17] MEDS ORDERED: CIPROFLOXACIN/D5W 400 MG/200 ML BAG As Ordered ONE (11:10)
[2022-11-17] MEDS: CIPROFLOXACIN 400 MG in IV 1 EA IV SCH ×2 (11:25→22:53)
[2022-11-17] MEDS ORDERED: ROCURONIUM BROMIDE 50MG/5ML VIAL As Ordered ONE ×2 (11:38→11:58)
[2022-11-17] MEDS ORDERED: SUGAMMADEX SODIUM 500 MG/5 ML VIAL (BRIDION) As Ordered ONE (11:38)
[2022-11-17] MEDS ORDERED: fentaNYL 100 MCG/2 ML INJECTION As Ordered ONE (11:38)
[2022-11-17] MEDS ORDERED: LIDOCAINE 2% 100MG/5ML SDV (FOR ANES.) As Ordered ONE (11:38)
[2022-11-17] MEDS ORDERED: ONDANSETRON 4MG 2ML VIAL As Ordered ONE (11:38)
[2022-11-17] MEDS ORDERED: propofoL 200 MG/20 ML VIAL As Ordered ONE (11:38)
[2022-11-17] MEDS ORDERED: ACETAMINOPHEN 1000MG 100ML IV BAG As Ordered ONE (11:41)
[2022-11-17] MEDS ORDERED: HYDROmorphone HCL 2MG/ML 1ML VIAL As Ordered ONE (11:57)
[2022-11-17] MEDS ORDERED: metroNIDAZOLE/NACL 500MG(5MG/ML) 100ML BAG As Ordered ONE (13:19)
[2022-11-17] MEDS ORDERED: GLUCAGON INJ 1MG VIAL As Ordered ONE (14:11)
[2022-11-17] MEDS ORDERED: GLUCAGON INJ 1MG VIAL IV ONE (14:13)
[2022-11-17] MEDS ORDERED: ONDANSETRON 4MG 2ML VIAL IV PRN (15:00)
[2022-11-17] MEDS: MORPHINE 4 MG/ML 1ML VIAL IV PRN (19:44)
[2022-11-17] MEDS: amLODIPine 5 MG TAB PO SCH (20:43)
[2022-11-17] MEDS: ATORVASTATIN 20 MG TAB PO SCH (20:43)
[2022-11-17] MEDS: TAMSULOSIN 0.4 MG CAP PO SCH (20:43)
[2022-11-18] MEDS: KETOROLAC 30 MG/ML 1ML VIAL IV PRN ×3 (00:19→20:16)
[2022-11-18 01:00] VITALS: BP 107/69
[2022-11-18] MEDS: MORPHINE 4 MG/ML 1ML VIAL IV PRN ×2 (01:49→06:45)
[2022-11-18 04:28] LABS: HEMATOCRIT 30.4 % (42.0-52.0); HEMOGLOBIN 9.5 g/dl (13.5-17.5); MEAN CORPUSCULAR HEMOGLOBIN 28.2 pg (27.0-33.0); MEAN CORPUSCULAR HGB CONC 31.3 g/dl (32.0-36.5); MEAN CORPUSCULAR VOLUME 90.2 fl (80.0-96.0); PLATELET COUNT, AUTOMATED 142 10^3/uL (150-450); RED BLOOD COUNT 3.37 10^6/uL (4.30-6.10); WHITE BLOOD COUNT 13.2 10^3/uL (4.0-10.0)
[2022-11-18] MEDS: metroNIDAZOLE 500 MG in IV 1 EA IV SCH (04:56)
[2022-11-18] MEDS: NS 1,000 ML IV SCH ×3 (04:59→16:20)
[2022-11-18 05:00] VITALS: BP 112/56
[2022-11-18 05:04] LABS: ALBUMIN 2.1 G/DL (3.2-5.2); ALKALINE PHOSPHATASE 63 U/L (46-116); ALT/SGPT 20 U/L (7.0-40); AST/SGOT 23 U/L (<34); BILIRUBIN,TOTAL 1.1 MG/DL (0.3-1.2); BLOOD UREA NITROGEN 24 MG/DL (9-23); CALCIUM LEVEL 7.6 MG/DL (8.3-10.6); CARBON DIOXIDE LEVEL 24 MMOL/L (20-31); CHLORIDE LEVEL 110 MMOL/L (98-107); GLOMERULAR FILTRATION RATE > 60.0 (>35); GLUCOSE, FASTING 111 MG/DL (74-106); POTASSIUM SERUM 3.8 MMOL/L (3.5-5.1); SODIUM LEVEL 139 MMOL/L (136-145); TOTAL PROTEIN 4.8 G/DL (5.7-8.2)
[2022-11-18] MEDS: TIOTROPIUM INHALER/CAPSULE (SPIRIVA) INH SCH (07:42)
[2022-11-18] MEDS: ADVAIR HFA 115/21MCG INHALER INH SCH ×2 (07:43→20:32)
[2022-11-18] MEDS: PANTOPRAZOLE 40MG VIAL IV SCH (09:54)
[2022-11-18] MEDS: ISOSORBIDE MON. (IMDUR) 30MG XR TAB PO SCH (09:56)
[2022-11-18] MEDS: METOPROLOL SUCC (TopROL XL) 100MG *XL* TAB PO SCH (09:56)
[2022-11-18 10:00] VITALS: BP 112/55
[2022-11-18] MEDS: CIPROFLOXACIN 500MG TABLET PO SCH ×2 (10:58→17:33)
[2022-11-18] MEDS: metroNIDAZOLE (FLAGYL) 500MG TABLET PO SCH ×2 (13:41→20:21)
[2022-11-18 14:00] VITALS: BP 111/55
[2022-11-18] MEDS: FAMOTIDINE 20 MG TAB PO SCH (17:33)
[2022-11-18 18:00] VITALS: BP 111/50
[2022-11-18] MEDS: TAMSULOSIN 0.4 MG CAP PO SCH (20:17)
[2022-11-18] MEDS: ATORVASTATIN 20 MG TAB PO SCH (20:17)
[2022-11-18] MEDS: amLODIPine 5 MG TAB PO SCH (20:20)
[2022-11-18 21:10] VITALS: BP 113/52
[2022-11-19] MEDS: NS 1,000 ML IV SCH (01:59)
[2022-11-19 06:00] VITALS: BP 128/58
[2022-11-19] MEDS: CIPROFLOXACIN 500MG TABLET PO SCH ×2 (06:03→18:15)
[2022-11-19] MEDS: metroNIDAZOLE (FLAGYL) 500MG TABLET PO SCH ×3 (06:03→21:19)
[2022-11-19 06:08] LABS: HEMATOCRIT 30.2 % (42.0-52.0); HEMOGLOBIN 9.5 g/dl (13.5-17.5); MEAN CORPUSCULAR HEMOGLOBIN 28.1 pg (27.0-33.0); MEAN CORPUSCULAR HGB CONC 31.5 g/dl (32.0-36.5); MEAN CORPUSCULAR VOLUME 89.3 fl (80.0-96.0); PLATELET COUNT, AUTOMATED 162 10^3/uL (150-450); RED BLOOD COUNT 3.38 10^6/uL (4.30-6.10); WHITE BLOOD COUNT 10.5 10^3/uL (4.0-10.0)
[2022-11-19 06:41] LABS: ALBUMIN 2.2 G/DL (3.2-5.2); ALKALINE PHOSPHATASE 62 U/L (46-116); ALT/SGPT 25 U/L (7.0-40); AST/SGOT 29 U/L (<34); BILIRUBIN,TOTAL 0.7 MG/DL (0.3-1.2); BLOOD UREA NITROGEN 30 MG/DL (9-23); CALCIUM LEVEL 7.7 MG/DL (8.3-10.6); CARBON DIOXIDE LEVEL 23 MMOL/L (20-31); CHLORIDE LEVEL 112 MMOL/L (98-107); CREATININE FOR GFR 1.12 MG/DL (0.70-1.30); GLOMERULAR FILTRATION RATE > 60.0 (>35); GLUCOSE, FASTING 99 MG/DL (74-106); POTASSIUM SERUM 3.6 MMOL/L (3.5-5.1); SODIUM LEVEL 141 MMOL/L (136-145); TOTAL PROTEIN 4.8 G/DL (5.7-8.2)
[2022-11-19] MEDS: ADVAIR HFA 115/21MCG INHALER INH SCH ×2 (07:43→19:45)
[2022-11-19] MEDS: TIOTROPIUM INHALER/CAPSULE (SPIRIVA) INH SCH (07:43)
[2022-11-19] MEDS: FAMOTIDINE 20 MG TAB PO SCH (08:56)
[2022-11-19] MEDS: ISOSORBIDE MON. (IMDUR) 30MG XR TAB PO SCH (08:56)
[2022-11-19] MEDS: METOPROLOL SUCC (TopROL XL) 100MG *XL* TAB PO SCH (08:56)
[2022-11-19] MEDS ORDERED: ENOXAPARIN 30MG/0.3ML SYRINGE (J1650 PER 10MG) SC SCH (09:00)
[2022-11-19] MEDS: KETOROLAC 30 MG/ML 1ML VIAL IV PRN ×2 (09:01→18:15)
[2022-11-19] MEDS ORDERED: PERCOCET 5MG/325MG TAB PO PRN (10:55)
[2022-11-19 14:00] VITALS: BP 113/51
[2022-11-19 21:00] VITALS: BP 131/58
[2022-11-19] MEDS: ATORVASTATIN 20 MG TAB PO SCH (21:19)
[2022-11-19] MEDS: APIXABAN 5 MG TAB (ELIQUIS) PO SCH (21:19)
[2022-11-19] MEDS: TAMSULOSIN 0.4 MG CAP PO SCH (21:19)
[2022-11-19] MEDS: amLODIPine 5 MG TAB PO SCH (21:19)
[2022-11-20] MEDS: CIPROFLOXACIN 500MG TABLET PO SCH ×2 (05:12→17:07)
[2022-11-20] MEDS: metroNIDAZOLE (FLAGYL) 500MG TABLET PO SCH ×3 (05:12→20:53)
[2022-11-20 06:23] VITALS: BP 149/66
[2022-11-20 06:26] LABS: HEMATOCRIT 29.8 % (42.0-52.0); HEMOGLOBIN 9.4 g/dl (13.5-17.5); MEAN CORPUSCULAR HEMOGLOBIN 28.3 pg (27.0-33.0); MEAN CORPUSCULAR HGB CONC 31.5 g/dl (32.0-36.5); MEAN CORPUSCULAR VOLUME 89.8 fl (80.0-96.0); PLATELET COUNT, AUTOMATED 174 10^3/uL (150-450); RED BLOOD COUNT 3.32 10^6/uL (4.30-6.10); WHITE BLOOD COUNT 7.9 10^3/uL (4.0-10.0)
[2022-11-20 06:55] LABS: ALBUMIN 2.3 G/DL (3.2-5.2); ALKALINE PHOSPHATASE 63 U/L (46-116); ALT/SGPT 28 U/L (7.0-40); AST/SGOT 26 U/L (<34); BILIRUBIN,TOTAL 0.5 MG/DL (0.3-1.2); BLOOD UREA NITROGEN 30 MG/DL (9-23); CALCIUM LEVEL 7.9 MG/DL (8.3-10.6); CARBON DIOXIDE LEVEL 24 MMOL/L (20-31); CHLORIDE LEVEL 115 MMOL/L (98-107); CREATININE FOR GFR 1.16 MG/DL (0.70-1.30); GLOMERULAR FILTRATION RATE > 60.0 (>35); GLUCOSE, FASTING 97 MG/DL (74-106); POTASSIUM SERUM 3.4 MMOL/L (3.5-5.1); SODIUM LEVEL 143 MMOL/L (136-145); TOTAL PROTEIN 4.9 G/DL (5.7-8.2)
[2022-11-20] MEDS: ADVAIR HFA 115/21MCG INHALER INH SCH ×2 (07:51→20:16)
[2022-11-20] MEDS: TIOTROPIUM INHALER/CAPSULE (SPIRIVA) INH SCH (07:51)
[2022-11-20] MEDS: KETOROLAC 30 MG/ML 1ML VIAL IV PRN ×2 (08:27→14:26)
[2022-11-20] MEDS: METOPROLOL SUCC (TopROL XL) 100MG *XL* TAB PO SCH (08:28)
[2022-11-20] MEDS: APIXABAN 5 MG TAB (ELIQUIS) PO SCH ×2 (08:28→20:53)
[2022-11-20] MEDS: ISOSORBIDE MON. (IMDUR) 30MG XR TAB PO SCH (08:28)
[2022-11-20] MEDS: FAMOTIDINE 20 MG TAB PO SCH (08:28)
[2022-11-20] MEDS: POTASSIUM CHLORIDE 10MEQ SR TABLET PO SCH (09:57)
[2022-11-20] MEDS: TAMSULOSIN 0.4 MG CAP PO SCH (20:52)
[2022-11-20] MEDS: amLODIPine 5 MG TAB PO SCH (20:53)
[2022-11-20] MEDS: ATORVASTATIN 20 MG TAB PO SCH (20:53)
[2022-11-21] MEDS: ACETAMINOPHEN TAB 650MG DOSE (2X325MG) PO PRN ×2 (04:29→18:20)
[2022-11-21] MEDS: CIPROFLOXACIN 500MG TABLET PO SCH ×2 (05:05→18:09)
[2022-11-21] MEDS: metroNIDAZOLE (FLAGYL) 500MG TABLET PO SCH ×3 (05:05→22:19)
[2022-11-21 05:53] VITALS: BP 144/73
[2022-11-21] MEDS: TIOTROPIUM INHALER/CAPSULE (SPIRIVA) INH SCH (08:00)
[2022-11-21] MEDS: ADVAIR HFA 115/21MCG INHALER INH SCH ×2 (08:01→19:52)
[2022-11-21] MEDS: KETOROLAC 30 MG/ML 1ML VIAL IV PRN (08:27)
[2022-11-21] MEDS: FAMOTIDINE 20 MG TAB PO SCH (08:30)
[2022-11-21] MEDS: METOPROLOL SUCC (TopROL XL) 100MG *XL* TAB PO SCH (08:30)
[2022-11-21] MEDS: POTASSIUM CHLORIDE 10MEQ SR TABLET PO SCH ×2 (08:30→11:31)
[2022-11-21] MEDS: ISOSORBIDE MON. (IMDUR) 30MG XR TAB PO SCH (08:31)
[2022-11-21 09:20] LABS: HEMATOCRIT 33.1 % (42.0-52.0); HEMOGLOBIN 10.6 g/dl (13.5-17.5); MEAN CORPUSCULAR HEMOGLOBIN 28.1 pg (27.0-33.0); MEAN CORPUSCULAR VOLUME 87.8 fl (80.0-96.0); PLATELET COUNT, AUTOMATED 210 10^3/uL (150-450); RED BLOOD COUNT 3.77 10^6/uL (4.30-6.10); WHITE BLOOD COUNT 8.4 10^3/uL (4.0-10.0)
[2022-11-21 10:38] LABS: ALBUMIN 2.5 G/DL (3.2-5.2); ALKALINE PHOSPHATASE 69 U/L (46-116); ALT/SGPT 33 U/L (7.0-40); AST/SGOT 35 U/L (<34); BILIRUBIN,TOTAL 0.8 MG/DL (0.3-1.2); BLOOD UREA NITROGEN 25 MG/DL (9-23); CARBON DIOXIDE LEVEL 24 MMOL/L (20-31); CHLORIDE LEVEL 112 MMOL/L (98-107); CREATININE FOR GFR 1.01 MG/DL (0.70-1.30); GLOMERULAR FILTRATION RATE > 60.0 (>35); GLUCOSE, FASTING 101 MG/DL (74-106); POTASSIUM SERUM 3.9 MMOL/L (3.5-5.1); SODIUM LEVEL 144 MMOL/L (136-145); TOTAL PROTEIN 5.5 G/DL (5.7-8.2)
[2022-11-21] MEDS ORDERED: PERCOCET 5MG/325MG TAB PO PRN (11:30)
[2022-11-21] MEDS: APIXABAN 5 MG TAB (ELIQUIS) PO SCH ×2 (11:30→19:59)
[2022-11-21 14:00] VITALS: BP 135/70
[2022-11-21] MEDS ORDERED: SIMETHICONE 80MG CHEW TAB PO PRN (14:45)
[2022-11-21] MEDS: CelecoXIB (CeleBREX) 100 MG CAP PO SCH (19:59)
[2022-11-21] MEDS: ATORVASTATIN 20 MG TAB PO SCH (19:59)
[2022-11-21] MEDS: TAMSULOSIN 0.4 MG CAP PO SCH (19:59)
[2022-11-21] MEDS: amLODIPine 5 MG TAB PO SCH (20:00)
[2022-11-22] MEDS: metroNIDAZOLE (FLAGYL) 500MG TABLET PO SCH ×3 (05:22→21:05)
[2022-11-22] MEDS: CIPROFLOXACIN 500MG TABLET PO SCH ×2 (05:22→17:38)
[2022-11-22 06:00] VITALS: BP 145/75
[2022-11-22] MEDS: ADVAIR HFA 115/21MCG INHALER INH SCH ×2 (07:55→19:39)
[2022-11-22] MEDS: TIOTROPIUM INHALER/CAPSULE (SPIRIVA) INH SCH (07:55)
[2022-11-22] MEDS: APIXABAN 5 MG TAB (ELIQUIS) PO SCH ×2 (09:23→21:06)
[2022-11-22] MEDS: CelecoXIB (CeleBREX) 100 MG CAP PO SCH ×2 (09:24→21:05)
[2022-11-22] MEDS: FAMOTIDINE 20 MG TAB PO SCH (09:24)
[2022-11-22] MEDS: POTASSIUM CHLORIDE 10MEQ SR TABLET PO SCH ×2 (09:24→21:06)
[2022-11-22] MEDS: METOPROLOL SUCC (TopROL XL) 100MG *XL* TAB PO SCH (09:25)
[2022-11-22] MEDS: ISOSORBIDE MON. (IMDUR) 30MG XR TAB PO SCH (09:25)
[2022-11-22 18:07] LABS: HEMATOCRIT 33.1 % (42.0-52.0); HEMOGLOBIN 10.5 g/dl (13.5-17.5); MEAN CORPUSCULAR HEMOGLOBIN 28.2 pg (27.0-33.0); MEAN CORPUSCULAR HGB CONC 31.7 g/dl (32.0-36.5); MEAN CORPUSCULAR VOLUME 88.7 fl (80.0-96.0); PLATELET COUNT, AUTOMATED 257 10^3/uL (150-450); RED BLOOD COUNT 3.73 10^6/uL (4.30-6.10); WHITE BLOOD COUNT 8.7 10^3/uL (4.0-10.0)
[2022-11-22 18:26] LABS: BLOOD UREA NITROGEN 25 MG/DL (9-23); CALCIUM LEVEL 8.2 MG/DL (8.3-10.6); CARBON DIOXIDE LEVEL 26 MMOL/L (20-31); CHLORIDE LEVEL 111 MMOL/L (98-107); GLOMERULAR FILTRATION RATE > 60.0 (>35); GLUCOSE, FASTING 87 MG/DL (74-106); POTASSIUM SERUM 3.9 MMOL/L (3.5-5.1); SODIUM LEVEL 141 MMOL/L (136-145)
[2022-11-22] MEDS: TAMSULOSIN 0.4 MG CAP PO SCH (21:05)
[2022-11-22] MEDS: ATORVASTATIN 20 MG TAB PO SCH (21:06)
[2022-11-22] MEDS: amLODIPine 5 MG TAB PO SCH (21:06)
[2022-11-23] MEDS: metroNIDAZOLE (FLAGYL) 500MG TABLET PO SCH ×3 (05:15→20:49)
[2022-11-23] MEDS: CIPROFLOXACIN 500MG TABLET PO SCH ×2 (05:15→18:07)
[2022-11-23 06:00] VITALS: BP 146/78
[2022-11-23] MEDS: ADVAIR HFA 115/21MCG INHALER INH SCH ×2 (08:05→19:06)
[2022-11-23] MEDS: TIOTROPIUM INHALER/CAPSULE (SPIRIVA) INH SCH (08:05)
[2022-11-23] MEDS: METOPROLOL SUCC (TopROL XL) 100MG *XL* TAB PO SCH (08:52)
[2022-11-23] MEDS: FAMOTIDINE 20 MG TAB PO SCH (08:52)
[2022-11-23] MEDS: ISOSORBIDE MON. (IMDUR) 30MG XR TAB PO SCH (08:52)
[2022-11-23] MEDS: APIXABAN 5 MG TAB (ELIQUIS) PO SCH ×2 (08:52→20:49)
[2022-11-23] MEDS: POTASSIUM CHLORIDE 10MEQ SR TABLET PO SCH ×2 (08:53→20:48)
[2022-11-23] MEDS: CelecoXIB (CeleBREX) 100 MG CAP PO SCH ×2 (08:53→20:49)
[2022-11-23 10:40] LABS: BASO % 0.5 % (0.0-1.0); EOS # 0.2 10^3/uL (0.0-0.5); EOS % 2.8 % (0.0-3.0); HEMATOCRIT 34.4 % (42.0-52.0); LYMPH # 0.6 10^3/uL (1.5-5.0); LYMPH % 6.9 % (24.0-44.0); MEAN CORPUSCULAR HEMOGLOBIN 28.4 pg (27.0-33.0); MEAN CORPUSCULAR VOLUME 88.7 fl (80.0-96.0); MONO # 0.9 10^3/uL (0.0-0.8); MONO % 10.8 % (2.0-8.0); NEUTROPHILS # 6.6 10^3/uL (1.5-8.5); NEUTROPHILS % 77.7 % (36.0-66.0); PLATELET COUNT, AUTOMATED 271 10^3/uL (150-450); RED BLOOD COUNT 3.88 10^6/uL (4.30-6.10); WHITE BLOOD COUNT 8.5 10^3/uL (4.0-10.0)
[2022-11-23 10:47] LABS: ERYTHROCYTE SEDIMENTATION RATE 81 mm/hr (0-20)
[2022-11-23] MEDS: METAMUCIL (PSYLLIUM) PACKET PO SCH ×2 (10:48→20:49)
[2022-11-23 11:21] LABS: ALBUMIN 2.6 G/DL (3.2-5.2); ALKALINE PHOSPHATASE 70 U/L (46-116); ALT/SGPT 47 U/L (7.0-40); AST/SGOT 52 U/L (<34); BILIRUBIN,TOTAL 0.7 MG/DL (0.3-1.2); BLOOD UREA NITROGEN 23 MG/DL (9-23); CALCIUM LEVEL 7.9 MG/DL (8.3-10.6); CARBON DIOXIDE LEVEL 26 MMOL/L (20-31); CHLORIDE LEVEL 107 MMOL/L (98-107); CREATININE FOR GFR 0.94 MG/DL (0.70-1.30); GLOMERULAR FILTRATION RATE > 60.0 (>35); GLUCOSE, FASTING 102 MG/DL (74-106); SODIUM LEVEL 141 MMOL/L (136-145); TOTAL PROTEIN 5.3 G/DL (5.7-8.2)
[2022-11-23 15:17] VITALS: BP 139/72
[2022-11-23] MEDS: amLODIPine 5 MG TAB PO SCH (20:48)
[2022-11-23] MEDS: BENZONATATE 100MG CAPSULE PO PRN (20:49)
[2022-11-23] MEDS: TAMSULOSIN 0.4 MG CAP PO SCH (20:49)
[2022-11-23] MEDS: ACETAMINOPHEN TAB 650MG DOSE (2X325MG) PO PRN (20:49)
[2022-11-23] MEDS: ATORVASTATIN 20 MG TAB PO SCH (20:49)
[2022-11-24 05:27] VITALS: BP 141/72
[2022-11-24] MEDS: metroNIDAZOLE (FLAGYL) 500MG TABLET PO SCH ×3 (06:07→21:04)
[2022-11-24] MEDS: CIPROFLOXACIN 500MG TABLET PO SCH ×2 (06:07→17:47)
[2022-11-24] MEDS: BENZONATATE 100MG CAPSULE PO PRN (06:08)
[2022-11-24] MEDS: TIOTROPIUM INHALER/CAPSULE (SPIRIVA) INH SCH (07:15)
[2022-11-24] MEDS: ADVAIR HFA 115/21MCG INHALER INH SCH ×2 (07:15→19:16)
[2022-11-24] MEDS ORDERED: NS 1,000 ML IV SCH (08:00)
[2022-11-24 08:22] LABS: BASO % 0.3 % (0.0-1.0); EOS # 0.2 10^3/uL (0.0-0.5); EOS % 3.4 % (0.0-3.0); HEMATOCRIT 32.8 % (42.0-52.0); HEMOGLOBIN 10.5 g/dl (13.5-17.5); LYMPH # 0.7 10^3/uL (1.5-5.0); LYMPH % 9.7 % (24.0-44.0); MEAN CORPUSCULAR HEMOGLOBIN 28.2 pg (27.0-33.0); MEAN CORPUSCULAR VOLUME 88.2 fl (80.0-96.0); MONO % 13.5 % (2.0-8.0); NEUTROPHILS % 71.4 % (36.0-66.0); PLATELET COUNT, AUTOMATED 263 10^3/uL (150-450); RED BLOOD COUNT 3.72 10^6/uL (4.30-6.10)
[2022-11-24 08:56] LABS: ALBUMIN 2.6 G/DL (3.2-5.2); ALKALINE PHOSPHATASE 65 U/L (46-116); ALT/SGPT 46 U/L (7.0-40); AST/SGOT 47 U/L (<34); BILIRUBIN,DIRECT 0.4 MG/DL (<0.4); BILIRUBIN,TOTAL 0.8 MG/DL (0.3-1.2); BLOOD UREA NITROGEN 21 MG/DL (9-23); CALCIUM LEVEL 8.3 MG/DL (8.3-10.6); CARBON DIOXIDE LEVEL 25 MMOL/L (20-31); CHLORIDE LEVEL 105 MMOL/L (98-107); CREATININE FOR GFR 0.94 MG/DL (0.70-1.30); GLOMERULAR FILTRATION RATE > 60.0 (>35); GLUCOSE, FASTING 93 MG/DL (74-106); POTASSIUM SERUM 4.1 MMOL/L (3.5-5.1); SODIUM LEVEL 138 MMOL/L (136-145); TOTAL PROTEIN 5.2 G/DL (5.7-8.2)
[2022-11-24] MEDS: FAMOTIDINE 20 MG TAB PO SCH (09:35)
[2022-11-24] MEDS: METAMUCIL (PSYLLIUM) PACKET PO SCH ×2 (09:35→21:04)
[2022-11-24] MEDS: CelecoXIB (CeleBREX) 100 MG CAP PO SCH ×2 (09:35→21:06)
[2022-11-24] MEDS: APIXABAN 5 MG TAB (ELIQUIS) PO SCH ×2 (09:35→21:04)
[2022-11-24] MEDS: POTASSIUM CHLORIDE 10MEQ SR TABLET PO SCH ×2 (09:35→21:06)
[2022-11-24] MEDS: METOPROLOL SUCC (TopROL XL) 100MG *XL* TAB PO SCH (09:36)
[2022-11-24] MEDS: ISOSORBIDE MON. (IMDUR) 30MG XR TAB PO SCH (09:36)
[2022-11-24] MEDS ORDERED: TAMSULOSIN 0.4 MG CAP PO ONE (09:40)
[2022-11-24 17:47] VITALS: BP 129/64
[2022-11-24] MEDS: TAMSULOSIN 0.4 MG CAP PO SCH (21:04)
[2022-11-24] MEDS: amLODIPine 5 MG TAB PO SCH (21:05)
[2022-11-24] MEDS: ATORVASTATIN 20 MG TAB PO SCH (21:05)
[2022-11-25] MEDS: metroNIDAZOLE (FLAGYL) 500MG TABLET PO SCH (05:21)
[2022-11-25] MEDS: CIPROFLOXACIN 500MG TABLET PO SCH ×2 (05:21→17:11)
[2022-11-25 06:00] VITALS: BP 152/71
[2022-11-25 06:24] LABS: BLOOD UREA NITROGEN 20 MG/DL (9-23); CALCIUM LEVEL 8.1 MG/DL (8.3-10.6); CARBON DIOXIDE LEVEL 25 MMOL/L (20-31); CHLORIDE LEVEL 107 MMOL/L (98-107); CREATININE FOR GFR 0.94 MG/DL (0.70-1.30); GLOMERULAR FILTRATION RATE > 60.0 (>35); GLUCOSE, FASTING 99 MG/DL (74-106); POTASSIUM SERUM 4.1 MMOL/L (3.5-5.1); SODIUM LEVEL 139 MMOL/L (136-145)
[2022-11-25] MEDS: TIOTROPIUM INHALER/CAPSULE (SPIRIVA) INH SCH (07:28)
[2022-11-25] MEDS: ADVAIR HFA 115/21MCG INHALER INH SCH ×2 (07:28→19:35)
[2022-11-25] MEDS: CelecoXIB (CeleBREX) 100 MG CAP PO SCH ×2 (08:02→20:12)
[2022-11-25] MEDS: ISOSORBIDE MON. (IMDUR) 30MG XR TAB PO SCH (08:03)
[2022-11-25] MEDS: METOPROLOL SUCC (TopROL XL) 100MG *XL* TAB PO SCH (08:03)
[2022-11-25] MEDS: POTASSIUM CHLORIDE 10MEQ SR TABLET PO SCH ×2 (08:03→20:16)
[2022-11-25] MEDS: FAMOTIDINE 20 MG TAB PO SCH (08:03)
[2022-11-25] MEDS: APIXABAN 5 MG TAB (ELIQUIS) PO SCH ×2 (08:03→20:12)
[2022-11-25] MEDS: METAMUCIL (PSYLLIUM) PACKET PO SCH ×2 (08:04→20:16)
[2022-11-25] MEDS ORDERED: TAMSULOSIN 0.4 MG CAP PO SCH (09:00)
[2022-11-25 17:11] VITALS: BP 116/64
[2022-11-25] MEDS: BENZONATATE 100MG CAPSULE PO PRN (17:11)
[2022-11-25] MEDS: ATORVASTATIN 20 MG TAB PO SCH (20:12)
[2022-11-25] MEDS: TAMSULOSIN 0.4 MG CAP PO SCH (20:12)
[2022-11-25] MEDS: amLODIPine 5 MG TAB PO SCH (20:15)
[2022-11-26] MEDS: CIPROFLOXACIN 500MG TABLET PO SCH ×2 (05:14→18:30)
[2022-11-26 05:17] VITALS: BP 125/66
[2022-11-26] MEDS: TIOTROPIUM INHALER/CAPSULE (SPIRIVA) INH SCH (07:37)
[2022-11-26] MEDS: ADVAIR HFA 115/21MCG INHALER INH SCH ×2 (07:37→19:29)
[2022-11-26 09:55] VITALS: BP 121/56
[2022-11-26] MEDS: METAMUCIL (PSYLLIUM) PACKET PO SCH ×2 (09:57→19:59)
[2022-11-26] MEDS: CelecoXIB (CeleBREX) 100 MG CAP PO SCH ×2 (09:57→19:59)
[2022-11-26] MEDS: ISOSORBIDE MON. (IMDUR) 30MG XR TAB PO SCH (09:57)
[2022-11-26] MEDS: APIXABAN 5 MG TAB (ELIQUIS) PO SCH ×2 (09:58→19:59)
[2022-11-26] MEDS: METOPROLOL SUCC (TopROL XL) 100MG *XL* TAB PO SCH (09:58)
[2022-11-26] MEDS: FAMOTIDINE 20 MG TAB PO SCH (09:58)
[2022-11-26] MEDS: POTASSIUM CHLORIDE 10MEQ SR TABLET PO SCH ×2 (09:58→19:59)
[2022-11-26 18:00] LABS: BLOOD UREA NITROGEN 19 MG/DL (9-23); CALCIUM LEVEL 8.1 MG/DL (8.3-10.6); CARBON DIOXIDE LEVEL 29 MMOL/L (20-31); CHLORIDE LEVEL 107 MMOL/L (98-107); CREATININE FOR GFR 0.99 MG/DL (0.70-1.30); GLOMERULAR FILTRATION RATE > 60.0 (>35); GLUCOSE, FASTING 88 MG/DL (74-106); POTASSIUM SERUM 4.3 MMOL/L (3.5-5.1); SODIUM LEVEL 140 MMOL/L (136-145)
[2022-11-26 18:03] LABS: HEMATOCRIT 32.9 % (42.0-52.0); HEMOGLOBIN 10.4 g/dl (13.5-17.5); MEAN CORPUSCULAR HEMOGLOBIN 28.2 pg (27.0-33.0); MEAN CORPUSCULAR HGB CONC 31.6 g/dl (32.0-36.5); MEAN CORPUSCULAR VOLUME 89.2 fl (80.0-96.0); PLATELET COUNT, AUTOMATED 324 10^3/uL (150-450); RED BLOOD COUNT 3.69 10^6/uL (4.30-6.10); WHITE BLOOD COUNT 7.5 10^3/uL (4.0-10.0)
[2022-11-26 18:30] VITALS: BP 118/55
[2022-11-26] MEDS: ATORVASTATIN 20 MG TAB PO SCH (19:59)
[2022-11-26] MEDS: TAMSULOSIN 0.4 MG CAP PO SCH (19:59)
[2022-11-26] MEDS: amLODIPine 5 MG TAB PO SCH (20:02)
[2022-11-27] MEDS ORDERED: FUROSEMIDE 20 MG TAB PO ONE (05:00)
[2022-11-27 06:00] VITALS: BP 129/61
[2022-11-27] MEDS: TIOTROPIUM INHALER/CAPSULE (SPIRIVA) INH SCH (07:24)
[2022-11-27] MEDS: ADVAIR HFA 115/21MCG INHALER INH SCH (07:25)
[2022-11-27] MEDS: POTASSIUM CHLORIDE 10MEQ SR TABLET PO SCH (09:39)
[2022-11-27] MEDS: METAMUCIL (PSYLLIUM) PACKET PO SCH (09:39)
[2022-11-27] MEDS: CelecoXIB (CeleBREX) 100 MG CAP PO SCH (09:39)
[2022-11-27 09:40] VITALS: BP 120/60
[2022-11-27] MEDS: APIXABAN 5 MG TAB (ELIQUIS) PO SCH (09:40)
[2022-11-27] MEDS: ISOSORBIDE MON. (IMDUR) 30MG XR TAB PO SCH (09:40)
[2022-11-27] MEDS: FAMOTIDINE 20 MG TAB PO SCH (09:40)
[2022-11-27] MEDS: METOPROLOL SUCC (TopROL XL) 100MG *XL* TAB PO SCH (09:40)
[2022-11-27] MEDS ORDERED: PERCOCET PO (12:37)
[2022-11-27] MEDS ORDERED: SIME80TA16 PO (12:37)
[2022-11-27] MEDS ORDERED: META1POW PO (12:37)
[2022-11-27] MEDS ORDERED: ACET1TAB55 PO (12:37)
[2022-11-27] MEDS ORDERED: LASI20TA3 PO (12:41)
== END 2022-11-27 15:04 | disposition home health service (06) | DRG 853 ==
LOC: M ED 08:19 → M ED INP 12:16 → M MSPAV 13:27
PROVIDERS: ADMIT Internal Medicine; ATTEND Internal Medicine
PROC: 0DBN4ZZ Excision of Sigmoid Colon, Percutaneous Endoscopic Approach (ICD-10-PCS; 2022-11-17)
PROC: 8E0W4CZ Robotic Assisted Procedure of Trunk Region, Percutaneous Endoscopic Approach (ICD-10-PCS; 2022-11-17)
PROC: 0D1N4Z4 Bypass Sigmoid Colon to Cutaneous, Percutaneous Endoscopic Approach (ICD-10-PCS; principal; 2022-11-17 10:22)
DX: A41.9 Sepsis, unspecified organism (principal); K65.9 Peritonitis, unspecified; K57.80 Diverticulitis of intestine, part unspecified, with perforation and abscess without bleeding; N13.2 Hydronephrosis with renal and ureteral calculous obstruction; I65.29 Occlusion and stenosis of unspecified carotid artery; I10 Essential (primary) hypertension; J44.9 Chronic obstructive pulmonary disease, unspecified; I48.0 Paroxysmal atrial fibrillation; E78.5 Hyperlipidemia, unspecified; K21.9 Gastro-esophageal reflux disease without esophagitis; N40.0 Benign prostatic hyperplasia without lower urinary tract symptoms; E83.51 Hypocalcemia; E87.6 Hypokalemia; Z79.899 Other long term (current) drug therapy; Z88.2 Allergy status to sulfonamides; Z88.8 Allergy status to other drugs, medicaments and biological substances; Z92.3 Personal history of irradiation; C71.2 Malignant neoplasm of temporal lobe

== ENCOUNTER → 2022-12-06 | Outpatient (CLI) | payer MEDICARE, OTHER ==
[~2022-12-06] MED LIST changes: +ACET-907 PO; +ACET1TAB55 PO; +FAMO1TAB11 PO; +LASI20TA3 PO; +META1POW PO; +METO1TAB33 PO; +PERCOCET PO; -POTA10CA33 PO; +POTA10CA60 PO; +SIME80TA16 PO
== END ==
LOC: M ONCR 10:41
PROVIDERS: ATTEND General Practice
DX: C41.0 Malignant neoplasm of bones of skull and face (principal); Z79.01 Long term (current) use of anticoagulants; Z79.51 Long term (current) use of inhaled steroids; Z79.899 Other long term (current) drug therapy; Z71.2 Person consulting for explanation of examination or test findings; Z87.891 Personal history of nicotine dependence; Z88.1 Allergy status to other antibiotic agents; Z88.2 Allergy status to sulfonamides; Z88.5 Allergy status to narcotic agent; Z88.8 Allergy status to other drugs, medicaments and biological substances; Z92.3 Personal history of irradiation; Z93.3 Colostomy status

== ENCOUNTER 2022-12-17 05:48 | Emergency (ER) | payer MEDICARE, OTHER ==
[~2022-12-17] VITALS: Ht 172.7 cm; Wt 72.6 kg
[2022-12-17] MEDS ORDERED: NS 500 ML IV ONE (07:00)
[2022-12-17 07:47] LABS: BASO % 0.6 % (0.0-1.0); EOS # 0.1 10^3/uL (0.0-0.5); EOS % 1.8 % (0.0-3.0); HEMATOCRIT 35.2 % (42.0-52.0); LYMPH % 14.7 % (24.0-44.0); MEAN CORPUSCULAR HGB CONC 31.3 g/dl (32.0-36.5); MEAN CORPUSCULAR VOLUME 89.6 fl (80.0-96.0); MONO # 0.6 10^3/uL (0.0-0.8); MONO % 8.4 % (2.0-8.0); NEUTROPHILS # 4.9 10^3/uL (1.5-8.5); PLATELET COUNT, AUTOMATED 217 10^3/uL (150-450); RED BLOOD COUNT 3.93 10^6/uL (4.30-6.10); WHITE BLOOD COUNT 6.7 10^3/uL (4.0-10.0)
[2022-12-17] MEDS ORDERED: ISOVUE-370 76% 100ML VIAL As Ordered ONE (07:58)
[2022-12-17 08:03] LABS: INR 1.36
[2022-12-17 08:04] LABS: PARTIAL THROMBOPLASTIN TIME 38.6 SECONDS (24.8-34.2)
[2022-12-17 08:11] LABS: ALBUMIN 3.3 G/DL (3.2-5.2); BILIRUBIN,DIRECT 0.3 MG/DL (<0.4); BILIRUBIN,TOTAL 0.9 MG/DL (0.3-1.2); TOTAL PROTEIN 6.6 G/DL (5.7-8.2)
[2022-12-17 09:57] VITALS: BP 117/58; TEMP 96.4; O2SAT 97
== END 2022-12-17 10:15 | disposition home or self-care (01) ==
LOC: M ED 05:48
DX: K43.5 Parastomal hernia without obstruction or gangrene (principal); I48.91 Unspecified atrial fibrillation; I10 Essential (primary) hypertension; E78.00 Pure hypercholesterolemia, unspecified; J45.909 Unspecified asthma, uncomplicated; J44.9 Chronic obstructive pulmonary disease, unspecified; G47.30 Sleep apnea, unspecified; K21.9 Gastro-esophageal reflux disease without esophagitis; K57.92 Diverticulitis of intestine, part unspecified, without perforation or abscess without bleeding; H40.9 Unspecified glaucoma; N40.0 Benign prostatic hyperplasia without lower urinary tract symptoms; F41.9 Anxiety disorder, unspecified; F32.A Depression, unspecified; Z86.718 Personal history of other venous thrombosis and embolism; Z87.442 Personal history of urinary calculi; Z79.01 Long term (current) use of anticoagulants; Z79.899 Other long term (current) drug therapy; Z88.8 Allergy status to other drugs, medicaments and biological substances; Z88.2 Allergy status to sulfonamides; Z88.5 Allergy status to narcotic agent
CPT/HCPCS: 74177; 80047; 80076; 83605; 83690; 85025; 85610; 85730; 96360; 99284; Q9967

== ENCOUNTER 2023-03-06 10:13 | Day surgery (SDC) | payer MEDICARE, OTHER ==
[~2023-03-06] VITALS: Ht 171.4 cm; Wt 74.4 kg
[~2023-03-06 10:13] MED LIST changes: +NS 1,000 ML IV ONE
[2023-03-06] MEDS ORDERED: LIDOCAINE 2% 100MG/5ML SDV (FOR ANES.) As Ordered ONE (12:45)
[2023-03-06] MEDS ORDERED: propofoL 200 MG/20 ML VIAL As Ordered ONE (12:45)
[2023-03-06 12:54] VITALS: TEMP 97.3
[2023-03-06 13:18] VITALS: BP 146/66; O2SAT 95
== END 2023-03-06 13:41 | disposition home or self-care (01) ==
LOC: M OPP 10:13
PROVIDERS: ATTEND Surgery
DX: Z01.818 Encounter for other preprocedural examination (principal); K57.20 Diverticulitis of large intestine with perforation and abscess without bleeding; K62.89 Other specified diseases of anus and rectum; K43.5 Parastomal hernia without obstruction or gangrene; Z93.3 Colostomy status; Z87.891 Personal history of nicotine dependence; Z79.01 Long term (current) use of anticoagulants; Z79.02 Long term (current) use of antithrombotics/antiplatelets; Z79.51 Long term (current) use of inhaled steroids; Z79.52 Long term (current) use of systemic steroids; Z79.899 Other long term (current) drug therapy; Z88.2 Allergy status to sulfonamides; Z88.5 Allergy status to narcotic agent; Z88.6 Allergy status to analgesic agent; Z88.8 Allergy status to other drugs, medicaments and biological substances

== ENCOUNTER → 2023-03-15 | Outpatient (CLI) | payer MEDICARE, OTHER ==
[~2023-03-15] MED LIST changes: -NS 1,000 ML IV ONE
== END ==
LOC: M PLAIMG 10:53
PROVIDERS: ATTEND Surgery
DX: K57.20 Diverticulitis of large intestine with perforation and abscess without bleeding (principal); K43.5 Parastomal hernia without obstruction or gangrene; Z93.3 Colostomy status

== ENCOUNTER → 2023-04-15 | Outpatient (CLI) | payer MEDICARE, OTHER ==
[~2023-04-15] MED LIST changes: +PROHANCE 279.3MG/ML 15ML VIAL As Ordered ONE
== END ==
LOC: M RAD 14:14
PROVIDERS: ATTEND General Practice
DX: C41.0 Malignant neoplasm of bones of skull and face (principal); C11.2 Malignant neoplasm of lateral wall of nasopharynx
CPT/HCPCS: 70543; 70553; A9576

== ENCOUNTER → 2023-04-16 | Outpatient (CLI) | payer MEDICARE, OTHER ==
[~2023-04-16] MED LIST changes: -PROHANCE 279.3MG/ML 15ML VIAL As Ordered ONE
== END ==
LOC: M ONCR 10:20
PROVIDERS: ATTEND Radiology Radiation Oncology
DX: C11.2 Malignant neoplasm of lateral wall of nasopharynx (principal); C41.0 Malignant neoplasm of bones of skull and face; K43.5 Parastomal hernia without obstruction or gangrene; Z71.2 Person consulting for explanation of examination or test findings; Z92.3 Personal history of irradiation; Z93.3 Colostomy status; Z87.891 Personal history of nicotine dependence; Z88.1 Allergy status to other antibiotic agents; Z88.2 Allergy status to sulfonamides; Z88.8 Allergy status to other drugs, medicaments and biological substances; Z88.5 Allergy status to narcotic agent; Z79.51 Long term (current) use of inhaled steroids; Z79.01 Long term (current) use of anticoagulants; Z79.899 Other long term (current) drug therapy

== ENCOUNTER → 2023-12-09 | Outpatient (CLI) | payer MEDICARE, OTHER ==
[~2023-12-09] MED LIST changes: -FLUT50SP17; +FLUTISP; -LIDO15SO PO; +LIDO15SO8 PO; +LORA1TAB23 PO; -POTA10CA60 PO; +POTA10CA70 PO; +PROHANCE 279.3MG/ML 15ML VIAL As Ordered ONE
[2023-12-09 15:13] LABS: HEMATOCRIT 37.4 % (42.0-52.0); MEAN CORPUSCULAR HEMOGLOBIN 27.8 pg (27.0-33.0); MEAN CORPUSCULAR HGB CONC 32.1 g/dl (32.0-36.5); MEAN CORPUSCULAR VOLUME 86.6 fl (80.0-96.0); PLATELET COUNT, AUTOMATED 218 10^3/uL (150-450); RED BLOOD COUNT 4.32 10^6/uL (4.30-6.10); WHITE BLOOD COUNT 6.7 10^3/uL (4.0-10.0)
[2023-12-09 15:51] LABS: ALBUMIN 3.4 G/DL (3.2-5.2); BILIRUBIN,TOTAL 1.1 MG/DL (0.3-1.2); CALCIUM LEVEL 9.2 MG/DL (8.3-10.6); CREATININE FOR GFR 1.36 MG/DL (0.70-1.30); GLOMERULAR FILTRATION RATE 52.5 (>35); POTASSIUM SERUM 3.4 MMOL/L (3.5-5.1); TOTAL PROTEIN 6.9 G/DL (5.7-8.2)
== END ==
LOC: M RAD 14:39
PROVIDERS: ATTEND General Practice
DX: C41.0 Malignant neoplasm of bones of skull and face (principal); C11.2 Malignant neoplasm of lateral wall of nasopharynx; M62.58 Muscle wasting and atrophy, not elsewhere classified, other site
CPT/HCPCS: 36415; 70543; 80053; 85027; A9576